=== PATIENT | female | born 1940 | race Caucasian/White ===

== ENCOUNTER → 2020-12-06 | Outpatient (CLI) | payer MEDICARE, OTHER ==
[2020-12-06 11:21] LABS: BILIRUBIN Negative (Negative); BLOOD Negative (Negative); CLARITY Cloudy (Clear); COLOR Yellow (Yellow); GLUCOSE Negative (Negative); KETONE Negative (Negative); LEUKO ESTERASE 3+ (Negative); NITRITE Negative (Negative); UROBILINOGEN 0.2 E.U./dl (0.0-1.0)
[2020-12-06 11:50] LABS: CREATININE 2.12 mg/dL (0.55-1.02); POTASSIUM 4.5 mmol/L (3.5-5.1)
[2020-12-06 12:06] LABS: WBC 21-30 wbc/hpf (0-5)
[2020-12-07 16:09] LABS: CREATININE,URINE 49.3 mg/dL (Not Estab.)
== END | disposition home or self-care (01) ==
LOC: US 10:00 → LAB 10:07
PROVIDERS: ATTEND Internal Medicine Nephrology
DX: K44.9 Diaphragmatic hernia without obstruction or gangrene (principal); E27.8 Other specified disorders of adrenal gland; K57.30 Diverticulosis of large intestine without perforation or abscess without bleeding; M51.37 Other intervertebral disc degeneration, lumbosacral region; M51.34 Other intervertebral disc degeneration, thoracic region; M48.061 Spinal stenosis, lumbar region without neurogenic claudication; M41.86 Other forms of scoliosis, lumbar region; I12.9 Hypertensive chronic kidney disease with stage 1 through stage 4 chronic kidney disease, or unspecified chronic kidney disease; N18.4 Chronic kidney disease, stage 4 (severe); E87.70 Fluid overload, unspecified; E55.9 Vitamin D deficiency, unspecified; Z98.890 Other specified postprocedural states